=== PATIENT | female | born 1975 | race Caucasian/White ===

== ENCOUNTER 2017-10-17 12:08 | Emergency (ER) | payer BC ==
[2017-10-17 12:24] VITALS: BP 100/70
--- NOTE | 2017-10-17 12:37 | UC ---
Upper Extremity HPI - HPI Summary HPI Summary: Pt. is a 42-year-old female who presents emergency department for right hand injury that occurred around 9 AM this morning. Patient states she tripped going into work and landed onto her right hand. No other injuries were sustained. Symptoms are mild in severity. Symptoms are mild in severity. Moving and touching hand makes symptoms worse. Rest makes symptoms better. - History of Current Complaint Chief Complaint: UCUpperExtremity Stated Complaint: HAND INJURY Time Seen by Provider: 10/17/17 12:25 Hx Obtained From: Patient Hx Last Menstrual Period: 10/15/17 Pain Intensity: 7 - Allergies/Home Medications Allergies/Adverse Reactions: Allergies Allergy/AdvReac Type Severity Reaction Status Date / Time codeine Allergy Rash Verified 10/17/17 12:24 PMH/Surg Hx/FS Hx/Imm Hx Previously Healthy: Yes - Surgical History Surgical History: Yes Surgery Procedure, Year, and Place: c/sec - Social History Occupation: Employed Full-time Lives: With Family Alcohol Use: Daily Substance Use Type: None Smoking Status (MU): Never Smoked Tobacco - Immunization History Most Recent Tetanus Shot: 2011 Review of Systems Musculoskeletal: Other: - Right hand pain. All Other Systems Reviewed And Are Negative: Yes Physical Exam Triage Information Reviewed: Yes Appearance: Well-Appearing - Pt. sitting in chair in NAD. Working on laptop. Vital Signs: Initial Vital Signs Temp 98 F 10/17/17 12:20 Pulse 81 10/17/17 12:20 Resp 17 10/17/17 12:20 BP 100/70 10/17/17 12:20 Pulse Ox 100 10/17/17 12:20 Eyes: Positive: Conjunctiva Clear Neck: Positive: Supple Musculoskeletal: Positive: Other: - Pain on palpation diffusely over MCP joints. No ecchymosis or edema. No breaks in skin. No proximal wrist pain. Full ROM of hand. Procedures - Splinting Right Upper Extremity Pre-Made Type: amador wrap Pre-Proc Neuro Vasc Exam: normal Post-Proc Neuro Vasc Exam: normal Upper Extremity Course/Dx - Course Course Of Treatment: Pt. presenting for an isololated minor hand injury. Xrays are negative for fracture or dislocation, reading per radiology. Advised ice and elevation. Tylenol or Motrin for pain as directed. To f.u with ortho. for repeat exam if pain persist. Pt. understands and agrees with plan. - Differential Dx/Diagnosis Differential Diagnosis/HQI/PQRI: Contusion, Fracture (Closed), Hematoma, Strain , Sprain Provider Diagnoses: Hand sprain Discharge - Sign-Out/Discharge Documenting (check all that apply): Patient Departure - Discharge Plan Condition: Good Disposition: HOME Patient Education Materials: Hand Sprain (ED) Referrals: Dave Amin MD [Medical Doctor] - No Primary Care Phys,NOPCP [Primary Care Provider] - Additional Instructions: Schedule an appointment with orthopedics if pain persist Ice and elevate Tylenol or Motrin for pain as directed - Billing Disposition and Condition Condition: GOOD Disposition: Home
--- NOTE | 2017-10-17 12:53 | RAD ---
INDICATION: Right hand injury COMPARISON: None TECHNIQUE: AP, lateral, and oblique views were obtained. FINDINGS: The bony structures, joint spaces, and soft tissues are normal for age. IMPRESSION: NEGATIVE EXAMINATION.
== END 2017-10-17 13:09 | disposition home or self-care (01) ==
LOC: UCEAST 12:08
DX: S63.91XA Sprain of unspecified part of right wrist and hand, initial encounter (principal); Z88.5 Allergy status to narcotic agent; W01.0XXA Fall on same level from slipping, tripping and stumbling without subsequent striking against object, initial encounter; Y92.9 Unspecified place or not applicable; Y99.0 Civilian activity done for income or pay
CPT/HCPCS: 99202; G0463